=== PATIENT | male | born 1950 | race African-American/Black ===

== ENCOUNTER 2018-11-13 21:31 | Inpatient (IN) | payer MEDICARE, MEDICAID ==
[~2018-11-13] VITALS: Ht 182.9 cm; Wt 67.2 kg
[2018-11-13] MEDS ORDERED: SODIUM CHLORIDE 0.9% 1,000 ML IV ONE (23:38)
[2018-11-14 00:05] LABS: BASOPHILS % 0.3 % (0.0-2.0); EOSINOPHILS % 0.3 % (0.0-5.0); HEMATOCRIT. 40.2 % (42.0-52.0); HEMOGLOBIN. 13.3 g/dL (14.0-18.0); LYMPHOCYTES % 8.3 % (20.0-50.0); MEAN CORPUSCULAR HEMOGLOBIN 31.4 pg (28.0-32.0); MEAN CORPUSCULAR VOLUME 94.6 fL (80.0-94.0); MEAN PLATELET VOLUME 9.1 fl (7.4-10.4); MONOCYTES % 5.6 % (2.0-8.0); NEUTROPHILS % 85.5 % (40.0-76.0); PLATELET 256 x1000/uL (130-400); RED BLOOD CELL COUNT 4.25 mill/uL (4.7-6.1); RED CELL DISTRIBUTION WIDTH 12.8 % (11.6-14.6)
[2018-11-14 00:10] LABS: CHLORIDE 105 mEq/L (98-107)
[2018-11-14 00:44] LABS: CLARITY URINE CLEAR (CLEAR); COLOR URINE YELLOW (YELLOW); KETONES URINE TRACE (NEGATIVE); LEUKOCYTE ESTERASE URINE NEGATIVE (NEGATIVE); NITRITE URINE NEGATIVE (NEGATIVE); OCCULT BLOOD URINE NEGATIVE (NEGATIVE); PH URINE 6.5 (4.5-8.0); PROTEIN URINE NEGATIVE (NEGATIVE); SPECIFIC GRAVITY URINE 1.031 (1.005-1.030)
[2018-11-14] MEDS ORDERED: KETOROLAC 30MG/ML VIAL IV ONE (02:15)
[2018-11-14] MEDS ORDERED: SODIUM CHLORIDE 0.9% 100 ML IV ONE (02:45)
[2018-11-14] MEDS ORDERED: INSULIN REGULAR (HUMULIN R) UD 100 UNITS/ML SYR IV ONE ×2 (02:45)
[2018-11-14] MEDS ORDERED: SODIUM CHLORIDE 0.9% 1,000 ML IV ONE (02:45)
[2018-11-14] MEDS ORDERED: CEFTRIAXONE 2 G PREMIX 50 ML IV ONE (04:45)
[2018-11-14] MEDS ORDERED: AZITHROMYCIN 500 MG in DEXT 5% WATER 250 ML IV SCH (04:45)
[2018-11-14] MEDS ORDERED: SODIUM CHLORIDE 0.9% 800 ML IV ONE (04:45)
[2018-11-14 08:30] VITALS: BP 150/80
[2018-11-14] MEDS ORDERED: DIPHENHYDRAMINE 50MG/ML VIAL IV PRN (10:30)
[2018-11-14] MEDS ORDERED: CLONIDINE 0.1MG TABLET PO PRN (10:30)
[2018-11-14] MEDS ORDERED: KETOROLAC 30MG/ML VIAL IV PRN (10:30)
[2018-11-14] MEDS ORDERED: ACETAMINOPHEN 325MG TABLET PO PRN (10:30)
[2018-11-14] MEDS ORDERED: ONDANSETRON HCL 4MG/2ML INJ IV PRN (10:30)
[2018-11-14] MEDS ORDERED: LORAZEPAM 0.5MG TABLET PO PRN (10:30)
[2018-11-14] MEDS ORDERED: IPRATROPIUM/ALBUTEROL 0.5-3(2.5)MG/3ML NEB INH PRN (10:30)
[2018-11-14] MEDS ORDERED: MAGNESIUM HYDROXIDE 400MG/5ML 30ML UDC PO PRN (10:30)
[2018-11-14] MEDS ORDERED: DEXTROSE 50% WATER 50ML SYRINGE IV PRN (10:30)
[2018-11-14] MEDS ORDERED: MAGNESIUM/ALUMINUM HYDROXIDE/SIMETHICONE 30ML UDC PO PRN (10:30)
[2018-11-14] MEDS ORDERED: METF-414 MT (11:18)
[2018-11-14] MEDS: BLOOD SUGAR DIAGNOSTIC STRIP TEST SCH ×3 (12:10→21:24)
[2018-11-14] MEDS ORDERED: LEVOFLOXACIN 500MG PREMIX 100 ML IV SCH (13:00)
[2018-11-14] MEDS ORDERED: INFLUENZA VIRUS VACCINE(AFLURIA) 0.5ML SYR IM ONE (14:00)
[2018-11-14] MEDS ORDERED: PNEUMOCOCCAL 23-VAL P-SAC VAC 0.5 ML IM ONE (14:00)
[2018-11-14] MEDS: INSULIN LISPRO 100 UNITS/ML SUBCUT SCH ×3 (14:06→21:42)
[2018-11-14] MEDS: ENOXAPARIN 40MG/0.4ML SYR SUBCUT SCH (14:13)
[2018-11-14] MEDS: LEVOFLOXACIN 500MG PREMIX 100 ML IV SCH (14:13)
[2018-11-14] MEDS: GUAIFENESIN 200MG/10ML SUGAR FREE UDC PO PRN (14:14)
[2018-11-14] MEDS: SODIUM CHLORIDE 0.9% INJ 3ML FLUSH IVF SCH ×2 (14:14→21:45)
[2018-11-14] MEDS: IPRATROPIUM/ALBUTEROL 0.5-3(2.5)MG/3ML NEB HHN SCH ×2 (16:08→21:45)
[2018-11-14 20:00] VITALS: BP 143/71
[2018-11-14] MEDS ORDERED: TEMAZEPAM 15MG CAPSULE PO PRN (21:00)
[2018-11-14] MEDS: GUAIFENESIN 600MG ER TABLET PO SCH (21:34)
[2018-11-14] MEDS: NICOTINE 21MG PATCH TD SCH (21:36)
[2018-11-14] MEDS: INSULIN GLARGINE UD 100 UNITS/ML SYR SUBCUT SCH (21:43)
[2018-11-15] VITALS: BP 147/75
[2018-11-15] MEDS: IPRATROPIUM/ALBUTEROL 0.5-3(2.5)MG/3ML NEB HHN SCH ×4 (01:30→11:42)
[2018-11-15 04:00] VITALS: BP 142/70
[2018-11-15] MEDS: BLOOD SUGAR DIAGNOSTIC STRIP TEST SCH ×4 (06:23→21:00)
[2018-11-15] MEDS: SODIUM CHLORIDE 0.9% INJ 3ML FLUSH IVF SCH ×3 (06:23→22:41)
[2018-11-15] MEDS: INSULIN LISPRO 100 UNITS/ML SUBCUT SCH ×4 (06:23→22:48)
[2018-11-15 07:05] LABS: BASOPHILS % 0.6 % (0.0-2.0); EOSINOPHILS % 0.8 % (0.0-5.0); HEMATOCRIT. 35.9 % (42.0-52.0); LYMPHOCYTES % 18.4 % (20.0-50.0); MEAN CORPUSCULAR HEMOGLOBIN 31.2 pg (28.0-32.0); MEAN CORPUSCULAR VOLUME 93.5 fL (80.0-94.0); MEAN PLATELET VOLUME 9.5 fl (7.4-10.4); MONOCYTES % 8.3 % (2.0-8.0); NEUTROPHILS % 71.9 % (40.0-76.0); PLATELET 260 x1000/uL (130-400); RED BLOOD CELL COUNT 3.84 mill/uL (4.7-6.1); RED CELL DISTRIBUTION WIDTH 12.6 % (11.6-14.6)
[2018-11-15 07:42] LABS: CHLORIDE 108 mEq/L (98-107)
[2018-11-15 08:00] VITALS: BP 150/80
[2018-11-15 08:01] LABS: PHOSPHORUS 2.6 mg/dL (2.5-4.9)
[2018-11-15] MEDS: GUAIFENESIN 600MG ER TABLET PO SCH (08:38)
[2018-11-15] MEDS: HYDROCODONE/ACETAMINOPHEN 5/325MG TABLET PO PRN ×2 (08:38→17:36)
[2018-11-15] MEDS: NICOTINE 21MG PATCH TD SCH (08:39)
[2018-11-15 11:52] VITALS: BP 148/86
[2018-11-15] MEDS: ENOXAPARIN 40MG/0.4ML SYR SUBCUT SCH (12:14)
[2018-11-15] MEDS: LEVOFLOXACIN 500MG PREMIX 100 ML IV SCH (12:15)
[2018-11-15 15:28] VITALS: BP 145/76
[2018-11-15] MEDS: BENZONATATE 100MG CAPSULE PO PRN (17:36)
[2018-11-15 20:00] VITALS: BP 166/86
[2018-11-15] MEDS: INSULIN GLARGINE UD 100 UNITS/ML SYR SUBCUT SCH (22:45)
[2018-11-16] VITALS: BP 166/86
[2018-11-16] MEDS: IPRATROPIUM/ALBUTEROL 0.5-3(2.5)MG/3ML NEB HHN SCH ×4 (01:30→21:33)
[2018-11-16] MEDS: GUAIFENESIN 600MG ER TABLET PO SCH ×3 (02:09→20:54)
[2018-11-16 04:00] VITALS: BP 168/82
[2018-11-16] MEDS: SODIUM CHLORIDE 0.9% INJ 3ML FLUSH IVF SCH ×3 (06:49→22:00)
[2018-11-16] MEDS: BLOOD SUGAR DIAGNOSTIC STRIP TEST SCH ×4 (06:51→21:00)
[2018-11-16] MEDS: INSULIN LISPRO 100 UNITS/ML SUBCUT SCH ×4 (06:51→21:00)
[2018-11-16 08:00] VITALS: BP 153/84
[2018-11-16] MEDS: BENZONATATE 100MG CAPSULE PO PRN ×2 (09:13→17:53)
[2018-11-16] MEDS: HYDROCODONE/ACETAMINOPHEN 5/325MG TABLET PO PRN ×3 (09:14→17:53)
[2018-11-16] MEDS: NICOTINE 21MG PATCH TD SCH (09:15)
[2018-11-16 12:00] VITALS: BP 154/84
[2018-11-16] MEDS: ENOXAPARIN 40MG/0.4ML SYR SUBCUT SCH (12:42)
[2018-11-16] MEDS: LEVOFLOXACIN 500MG PREMIX 100 ML IV SCH (12:44)
[2018-11-16] MEDS: GUAIFENESIN 200MG/10ML SUGAR FREE UDC PO PRN (12:48)
[2018-11-16 16:00] VITALS: BP 148/85
[2018-11-16 20:00] VITALS: BP 147/87
[2018-11-16] MEDS: INSULIN GLARGINE UD 100 UNITS/ML SYR SUBCUT SCH (20:59)
[2018-11-17] VITALS: BP 145/76
[2018-11-17] MEDS: IPRATROPIUM/ALBUTEROL 0.5-3(2.5)MG/3ML NEB HHN SCH ×2 (02:44→21:30)
[2018-11-17 04:00] VITALS: BP 149/82
[2018-11-17] MEDS: SODIUM CHLORIDE 0.9% INJ 3ML FLUSH IVF SCH ×3 (06:32→22:02)
[2018-11-17] MEDS: INSULIN LISPRO 100 UNITS/ML SUBCUT SCH ×4 (06:33→21:34)
[2018-11-17] MEDS: BLOOD SUGAR DIAGNOSTIC STRIP TEST SCH ×4 (07:02→21:19)
[2018-11-17 08:00] VITALS: BP 145/87
[2018-11-17] MEDS: GUAIFENESIN 600MG ER TABLET PO SCH ×2 (08:25→21:19)
[2018-11-17] MEDS: NICOTINE 21MG PATCH TD SCH (08:26)
[2018-11-17] MEDS: LEVOFLOXACIN 500MG TABLET PO SCH (11:58)
[2018-11-17] MEDS: ENOXAPARIN 40MG/0.4ML SYR SUBCUT SCH (11:59)
[2018-11-17 12:00] VITALS: BP 133/70
[2018-11-17 16:00] VITALS: BP 140/76
[2018-11-17 20:00] VITALS: BP 163/93
[2018-11-17] MEDS: INSULIN GLARGINE UD 100 UNITS/ML SYR SUBCUT SCH (21:35)
[2018-11-18] VITALS: BP 140/68
[2018-11-18] MEDS: IPRATROPIUM/ALBUTEROL 0.5-3(2.5)MG/3ML NEB HHN SCH ×2 (01:58→07:18)
[2018-11-18 04:00] VITALS: BP 135/72
[2018-11-18] MEDS: BLOOD SUGAR DIAGNOSTIC STRIP TEST SCH ×2 (06:43→12:16)
[2018-11-18] MEDS: SODIUM CHLORIDE 0.9% INJ 3ML FLUSH IVF SCH ×2 (06:44→14:25)
[2018-11-18] MEDS: INSULIN LISPRO 100 UNITS/ML SUBCUT SCH ×2 (07:54→12:27)
[2018-11-18 08:00] VITALS: BP 156/81
[2018-11-18] MEDS: GUAIFENESIN 600MG ER TABLET PO SCH (08:01)
[2018-11-18] MEDS: NICOTINE 21MG PATCH TD SCH (08:01)
[2018-11-18] MEDS ORDERED: BENZONATATE 100MG CAPSULE PO SCH (10:30)
[2018-11-18] MEDS: LEVOFLOXACIN 500MG TABLET PO SCH (10:52)
[2018-11-18] MEDS: ENOXAPARIN 40MG/0.4ML SYR SUBCUT SCH (10:53)
[2018-11-18 12:00] VITALS: BP 148/89
[2018-11-18 13:30] VITALS: BP 148/89
== END 2018-11-18 16:30 | disposition home or self-care (01) | DRG 871 ==
LOC: ER 21:43 → 8WST 11-14 04:49 → EDBEDREQTM 11-14 04:50 → EDBEDREQ 11-14 04:50 → ENRESERV 11-14 07:08 → 8WST 11-14 08:50
PROVIDERS: ADMIT Internal Medicine; ATTEND Internal Medicine
DX: A41.9 Sepsis, unspecified organism (principal); J18.1 Lobar pneumonia, unspecified organism; J96.00 Acute respiratory failure, unspecified whether with hypoxia or hypercapnia; S32.10XA Unspecified fracture of sacrum, initial encounter for closed fracture; S32.059A Unspecified fracture of fifth lumbar vertebra, initial encounter for closed fracture; J44.0 Chronic obstructive pulmonary disease with (acute) lower respiratory infection; I10 Essential (primary) hypertension; E11.51 Type 2 diabetes mellitus with diabetic peripheral angiopathy without gangrene; F17.210 Nicotine dependence, cigarettes, uncomplicated; I25.10 Atherosclerotic heart disease of native coronary artery without angina pectoris; M48.061 Spinal stenosis, lumbar region without neurogenic claudication; W01.0XXA Fall on same level from slipping, tripping and stumbling without subsequent striking against object, initial encounter; Y92.009 Unspecified place in unspecified non-institutional (private) residence as the place of occurrence of the external cause; Y93.89 Activity, other specified; Y99.8 Other external cause status; Z59.0 Homelessness; I25.2 Old myocardial infarction; Z82.49 Family history of ischemic heart disease and other diseases of the circulatory system; Z83.3 Family history of diabetes mellitus; Z95.820 Peripheral vascular angioplasty status with implants and grafts; Z95.818 Presence of other cardiac implants and grafts; Z71.6 Tobacco abuse counseling
CPT/HCPCS: 36415; 71045; 72192; 80048; 82962; 83036; 83605; 83735; 83880; 84100; 84484; 87804; 90686; 90732; 93005; 94640; 96361; 96374; 97162; 99285; J0456; J0696; J1650; J1815; J1885; J1956; J7030; J7050; J7060; J7620

== ENCOUNTER 2020-12-30 07:05 | Emergency (ER) | payer OTHER, MEDICAID ==
[~2020-12-30] VITALS: Ht 180.3 cm; Wt 70.0 kg
[~2020-12-30 07:05] MED LIST: METF-414 MT
[2020-12-30] MEDS ORDERED: PIPERACILLIN/TAZ 3.375G PREMIX 50 ML IV ONE (07:30)
[2020-12-30] MEDS ORDERED: VANCOMYCIN 1 G PREMIX 200 ML IV ONE (07:30)
[2020-12-30 08:44] LABS: BASOPHILS % 0.6 % (0.0-2.0); EOSINOPHILS % 1.8 % (0.0-5.0); HEMATOCRIT. 42.1 % (42.0-52.0); LYMPHOCYTES % 25.4 % (20.0-50.0); MEAN CORPUSCULAR HEMOGLOBIN 30.5 pg (28.0-32.0); MEAN CORPUSCULAR VOLUME 91.9 fL (80.0-94.0); MEAN PLATELET VOLUME 8.7 fl (7.4-10.4); MONOCYTES % 7.5 % (2.0-8.0); NEUTROPHILS % 64.7 % (40.0-76.0); PLATELET 378 x1000/uL (130-400); RED BLOOD CELL COUNT 4.58 mill/uL (4.7-6.1); RED CELL DISTRIBUTION WIDTH 14.4 % (11.6-14.6)
[2020-12-30 08:57] LABS: INR 1.2; PROTHROMBIN TIME 12.3 sec (9.6-11.0)
[2020-12-30 09:07] LABS: CHLORIDE 107 mEq/L (98-107)
[2020-12-30] MEDS ORDERED: MORPHINE SULFATE 4 MG/ML CPJ (NOT FOR IM USE) IV ONE (10:15)
[2020-12-30 11:15] VITALS: BP 161/87
== END 2020-12-30 11:59 | disposition short-term general hospital (02) ==
LOC: ER 07:27 → CANBEDREQ 11:49 → ER 11:59
DX: E11.69 Type 2 diabetes mellitus with other specified complication (principal); M86.8X7 Other osteomyelitis, ankle and foot; E11.52 Type 2 diabetes mellitus with diabetic peripheral angiopathy with gangrene; I96 Gangrene, not elsewhere classified; M84.478A Pathological fracture, left toe(s), initial encounter for fracture; I10 Essential (primary) hypertension; E78.00 Pure hypercholesterolemia, unspecified; Z91.14 Patient's other noncompliance with medication regimen; F14.10 Cocaine abuse, uncomplicated
CPT/HCPCS: 36415; 71045; 73630; 80053; 83605; 85025; 85610; 85651; 86141; 87040; 93005; 96365; 96366; 96368; 96375; 99285; J2270; J2543; J3370

== ENCOUNTER 2022-10-07 18:49 | Emergency (ER) | payer OTHER, MEDICAID ==
[~2022-10-07] VITALS: Ht 182.9 cm; Wt 81.0 kg
[2022-10-07] MEDS ORDERED: VANCOMYCIN 1G PREMIX 200 ML IV ONE (19:15)
[2022-10-07] MEDS ORDERED: PIPERACILLIN/TAZ 3.375G PREMIX 50 ML IV ONE (19:15)
[2022-10-07 20:11] LABS: BASOPHILS % 0.6 % (0.0-2.0); EOSINOPHILS % 3.8 % (0.0-5.0); HEMATOCRIT. 40.4 % (42.0-52.0); HEMOGLOBIN. 13.4 g/dL (14.0-18.0); LYMPHOCYTES % 28.1 % (20.0-50.0); MEAN CORPUSCULAR HEMOGLOBIN 31.2 pg (28.0-32.0); MONOCYTES % 6.7 % (2.0-8.0); NEUTROPHILS % 60.8 % (40.0-76.0); PLATELET 330 x1000/uL (130-400); RED CELL DISTRIBUTION WIDTH 14.5 % (11.6-14.6)
[2022-10-07 20:21] LABS: CHLORIDE 107 mEq/L (98-107)
[2022-10-08] MEDS ORDERED: VANCOMYCIN 1G PREMIX 200 ML IV NR (01:15)
[2022-10-08] MEDS ORDERED: PIPERACILLIN/TAZ 3.375G PREMIX 50 ML IV NR (01:15)
[2022-10-08] MEDS ORDERED: ACETAMINOPHEN 500MG TABLET PO ONE (01:45)
[2022-10-08 02:30] VITALS: BP 148/79
[2022-10-08 02:33] LABS: INR 1.1; PROTHROMBIN TIME 11.9 sec (9.6-11.0)
== END 2022-10-08 02:55 | disposition short-term general hospital (02) ==
LOC: ER 19:38 → CANBEDREQ 10-08 06:54
DX: E11.621 Type 2 diabetes mellitus with foot ulcer (principal); L97.519 Non-pressure chronic ulcer of other part of right foot with unspecified severity; Z20.822 Contact with and (suspected) exposure to COVID-19
CPT/HCPCS: 36415; 73630; 80053; 82962; 85025; 85610; 85651; 87426; 96365; 96366; 96368; 99285; C9803; J2543; J3370

== ENCOUNTER 2023-05-18 02:16 | Inpatient (IN) | payer MEDICARE, MEDICAID ==
[~2023-05-18] VITALS: Ht 183.1 cm; Wt 67.6 kg
[2023-05-18 02:18] VITALS: O2SAT 99
[2023-05-18 03:16] LABS: BASOPHILS % 0.8 % (0.0-2.0); EOSINOPHILS % 2.4 % (0.0-5.0); HEMATOCRIT. 40.5 % (42.0-52.0); HEMOGLOBIN. 13.6 g/dL (14.0-18.0); LYMPHOCYTES % 29.2 % (20.0-50.0); MEAN CORPUSCULAR HEMOGLOBIN 32.4 pg (28.0-32.0); MEAN CORPUSCULAR HGB CONC 33.6 g/dL (31.0-37.0); MEAN CORPUSCULAR VOLUME 96.5 fL (80.0-94.0); MONOCYTES % 7.4 % (2.0-8.0); NEUTROPHILS % 60.2 % (40.0-76.0); PLATELET 311 x1000/uL (130-400); RED BLOOD CELL COUNT 4.19 mill/uL (4.7-6.1); RED CELL DISTRIBUTION WIDTH 13.5 % (11.6-14.6); WHITE BLOOD COUNT 6.6 x1000/uL (4.5-11.0)
[2023-05-18 03:24] LABS: CHLORIDE 107 mEq/L (98-107); INDEX HEMOLYSI 1 (1-3); INDEX ICTERIC 1 (1-4); INDEX LIPEMIC 1 (1-3); POTASSIUM 3.4 mEq/L (3.5-5.1); SODIUM 137 mEq/L (136-145)
[2023-05-18 03:32] LABS: ALANINE AMINOTRANSFERASE 20 IU/L (13-61); ALBUMIN 3.1 g/dL (3.4-5.0); ASPARTATE AMINOTRANSFERASE 12 IU/L (15-37); BILIRUBIN TOTAL 0.3 mg/dL (0.1-1.0); CALCIUM 8.9 mg/dL (8.5-10.1); CARBON DIOXIDE 26 mEq/L (21-32); CREATINE KINASE 124 IU/L (39-308); CREATININE 0.9 mg/dL (0.6-1.3); ETHANOL BLOOD < 10 mg/dL (<10); PROTEIN TOTAL 7.9 g/dL (6.0-8.3); UREA NITROGEN BLOOD 9 mg/dL (7-21)
[2023-05-18 03:43] LABS: INR 1.1; PROTHROMBIN TIME 11.4 sec (9.6-11.0)
[2023-05-18 03:47] LABS: GLUCOSE 43 mg/dL (70-105)
[2023-05-18] MEDS ORDERED: VANCOMYCIN 1G PREMIX 200 ML IV NR (05:15)
[2023-05-18] MEDS ORDERED: DEXTROSE 50% WATER 50ML SYRINGE IV NR (05:15)
[2023-05-18] MEDS ORDERED: DOCUSATE SODIUM 100MG CAPSULE PO PRN (05:30)
[2023-05-18] MEDS ORDERED: ACETAMINOPHEN 325MG TABLET PO PRN ×2 (05:30)
[2023-05-18] MEDS ORDERED: ONDANSETRON HCL 4MG/2ML INJ IV PRN (05:30)
[2023-05-18] MEDS ORDERED: IPRATROPIUM/ALBUTEROL 0.5-3(2.5)MG/3ML NEB HHN PRN (05:30)
[2023-05-18] MEDS ORDERED: DEXTROSE 50% WATER 50ML SYRINGE IV PRN ×2 (05:30→16:00)
[2023-05-18] MEDS ORDERED: GUAIFENESIN 200MG/10ML SUGAR FREE UDC PO PRN (05:30)
[2023-05-18] MEDS ORDERED: PIPERACILLIN/TAZ 3.375G PREMIX 50 ML IV NR (06:00)
[2023-05-18] MEDS: AMLODIPINE 5MG TABLET PO SCH ×2 (06:48→09:30)
[2023-05-18 07:04] LABS: INDEX HEMOLYSI 1 (1-3)
[2023-05-18 07:13] LABS: CREATINE KINASE 102 IU/L (39-308); CREATINE KINASE MB FRACTION 2.6 ng/mL (0.5-3.6); TROPONIN I HIGH SENSITIVITY 15 ng/L (<78)
[2023-05-18 07:16] LABS: PHOSPHORUS 2.9 mg/dL (2.5-4.9); T4 FREE 0.98 ng/dL (0.76-1.46); THYROID STIMULATING HORMONE 1.1 uIU/mL (0.36-3.74)
[2023-05-18 07:33] LABS: FOLIC ACID (FOLATE) SERUM 16.5 ng/mL (>5.38)
[2023-05-18] MEDS: INSULIN LISPRO 100 UNITS/ML SUBCUT SCH ×4 (08:20→21:41)
[2023-05-18] MEDS: ENOXAPARIN 40MG/0.4ML SYR SUBCUT SCH (09:31)
[2023-05-18] MEDS: BLOOD SUGAR DIAGNOSTIC STRIP TEST SCH ×4 (09:40→20:46)
[2023-05-18] MEDS ORDERED: PIPERACILLIN/TAZOBACTAM 3.375 G in DEXTROSE 5% WATER 50 ML IV SCH (14:00)
[2023-05-18 14:30] VITALS: BP 172/83; PULSE 75; RESP 18; TEMP 97.5
[2023-05-18] MEDS: CLONIDINE 0.1MG TABLET PO PRN (14:30)
[2023-05-18] MEDS: GABAPENTIN 100MG CAPSULE PO SCH ×2 (14:31→21:40)
[2023-05-18] MEDS ORDERED: PIPERACILLIN/TAZOBACTAM 3.375G in DEXT 5% WATER 50ML IV SCH (15:00)
[2023-05-18 16:00] VITALS: BP 172/83; PULSE 75; RESP 18; TEMP 97.6
[2023-05-18] MEDS: PIPERACILLIN/TAZOBACTAM 3.375G in DEXT 5% WATER 50ML IV SCH ×2 (16:08→21:40)
[2023-05-18] MEDS: NICOTINE 21MG PATCH TD SCH (16:09)
[2023-05-18 16:15] VITALS: BP 166/87; PULSE 88; RESP 20; TEMP 97.5
[2023-05-18] MEDS: VANCOMYCIN 750MG PREMIX 150 ML IV SCH (18:00)
[2023-05-18 20:00] VITALS: BP 132/66; PULSE 85; RESP 18; TEMP 98.3
[2023-05-18] MEDS ORDERED: KETOROLAC 30MG/ML VIAL IV NR (20:45)
[2023-05-18] MEDS: FAMOTIDINE 20MG TABLET PO SCH (21:40)
[2023-05-19] VITALS (7 sets, daily range): BP systolic 107–168; BP diastolic 53–87; PULSE 66–88; RESP 18–20; TEMP 97.5–98.9
[2023-05-19 00:07] LABS: CREATINE KINASE MB FRACTION 1.5 ng/mL (0.5-3.6)
[2023-05-19] MEDS: VANCOMYCIN 750MG PREMIX 150 ML IV SCH ×2 (05:17→18:07)
[2023-05-19] MEDS: GABAPENTIN 100MG CAPSULE PO SCH ×3 (05:17→22:07)
[2023-05-19] MEDS: PIPERACILLIN/TAZOBACTAM 3.375G in DEXT 5% WATER 50ML IV SCH ×3 (06:01→22:07)
[2023-05-19] MEDS: BLOOD SUGAR DIAGNOSTIC STRIP TEST SCH ×4 (07:18→21:00)
[2023-05-19] MEDS: INSULIN LISPRO 100 UNITS/ML SUBCUT SCH ×4 (08:10→21:00)
[2023-05-19 08:21] LABS: HEMOGLOBIN 12.4 g/dL (14.0-18.0); MEAN CORPUSCULAR HEMOGLOBIN 32.3 pg (28.0-32.0); MEAN CORPUSCULAR HGB CONC 33.5 g/dL (31.0-37.0); MEAN CORPUSCULAR VOLUME 96.4 fL (80.0-94.0); PLATELET 290 x1000/uL (130-400); RED BLOOD CELL COUNT 3.84 mill/uL (4.7-6.1); RED CELL DISTRIBUTION WIDTH 13.5 % (11.6-14.6)
[2023-05-19] MEDS: AMLODIPINE 5MG TABLET PO SCH (09:00)
[2023-05-19] MEDS: NICOTINE 21MG PATCH TD SCH (09:23)
[2023-05-19] MEDS: ENOXAPARIN 40MG/0.4ML SYR SUBCUT SCH (09:23)
[2023-05-19 09:33] LABS: CHLORIDE 109 mEq/L (98-107); INDEX HEMOLYSI 1 (1-3); INDEX ICTERIC 1 (1-4); INDEX LIPEMIC 1 (1-3); POTASSIUM 4.4 mEq/L (3.5-5.1); SODIUM 135 mEq/L (136-145)
[2023-05-19 09:41] LABS: ALANINE AMINOTRANSFERASE 15 IU/L (13-61); ALBUMIN 2.4 g/dL (3.4-5.0); ASPARTATE AMINOTRANSFERASE 15 IU/L (15-37); BILIRUBIN TOTAL 0.7 mg/dL (0.1-1.0); CARBON DIOXIDE 25 mEq/L (21-32); GLUCOSE 95 mg/dL (70-105); PROTEIN TOTAL 6.4 g/dL (6.0-8.3); UREA NITROGEN BLOOD 16 mg/dL (7-21)
[2023-05-19] MEDS ORDERED: TETANUS AND DIPHTHERIA TOX/PF 0.5ML SYR (ADULT) IM ONE (15:00)
[2023-05-19] MEDS: CLONIDINE 0.1MG TABLET PO PRN (22:07)
[2023-05-19] MEDS: FAMOTIDINE 20MG TABLET PO SCH (22:07)
[2023-05-20] VITALS: BP 117/62; PULSE 85; RESP 20; TEMP 97.9
[2023-05-20 04:00] VITALS: BP 138/72; PULSE 62; RESP 18; TEMP 98.5
[2023-05-20] MEDS: VANCOMYCIN 750MG PREMIX 150 ML IV SCH ×2 (05:01→17:35)
[2023-05-20] MEDS: GABAPENTIN 100MG CAPSULE PO SCH ×4 (05:01→21:11)
[2023-05-20] MEDS: PIPERACILLIN/TAZOBACTAM 3.375G in DEXT 5% WATER 50ML IV SCH ×3 (06:18→21:12)
[2023-05-20 07:42] LABS: HEMATOCRIT 38.2 % (42.0-52.0); HEMOGLOBIN 12.5 g/dL (14.0-18.0); MEAN CORPUSCULAR HEMOGLOBIN 31.6 pg (28.0-32.0); MEAN CORPUSCULAR HGB CONC 32.7 g/dL (31.0-37.0); MEAN CORPUSCULAR VOLUME 96.7 fL (80.0-94.0); PLATELET 323 x1000/uL (130-400); RED BLOOD CELL COUNT 3.95 mill/uL (4.7-6.1); RED CELL DISTRIBUTION WIDTH 13.5 % (11.6-14.6); WHITE BLOOD COUNT 4.7 x1000/uL (4.5-11.0)
[2023-05-20] MEDS: INSULIN LISPRO 100 UNITS/ML SUBCUT SCH ×4 (07:42→21:11)
[2023-05-20] MEDS: BLOOD SUGAR DIAGNOSTIC STRIP TEST SCH ×4 (07:42→21:00)
[2023-05-20 08:00] VITALS: BP 128/67; PULSE 62; RESP 18; TEMP 97.2
[2023-05-20 08:15] LABS: CHLORIDE 110 mEq/L (98-107); INDEX HEMOLYSI 1 (1-3); INDEX ICTERIC 1 (1-4); INDEX LIPEMIC 1 (1-3); POTASSIUM 4.6 mEq/L (3.5-5.1); SODIUM 136 mEq/L (136-145)
[2023-05-20 08:22] LABS: CALCIUM 8.2 mg/dL (8.5-10.1); CARBON DIOXIDE 25 mEq/L (21-32); CREATININE 0.9 mg/dL (0.6-1.3); GLUCOSE 107 mg/dL (70-105); PHOSPHORUS 2.9 mg/dL (2.5-4.9); UREA NITROGEN BLOOD 12 mg/dL (7-21)
[2023-05-20] MEDS: ENOXAPARIN 40MG/0.4ML SYR SUBCUT SCH (09:00)
[2023-05-20] MEDS: AMLODIPINE 5MG TABLET PO SCH (09:01)
[2023-05-20] MEDS: NICOTINE 21MG PATCH TD SCH (09:03)
[2023-05-20 12:00] VITALS: BP 120/71; PULSE 75; RESP 18; TEMP 97.8
[2023-05-20] MEDS ORDERED: KETOROLAC 30MG/ML VIAL IV NR (14:45)
[2023-05-20 16:03] LABS: *AMPHETAMINES SCREEN URINE NEGATIVE (NEGATIVE); *BARBITURATES SCREEN URINE NEGATIVE (NEGATIVE); *BENZODIAZEPINES SCREEN URINE NEGATIVE (NEGATIVE); *COCAINE SCREEN URINE PRESUMTIVE POSITIVE (NEGATIVE); CANNABINOID URINE SCREEN NEGATIVE (NEGATIVE); ECSTASY MDMA SCREEN URINE NEGATIVE (NEGATIVE); OPIATES URINE SCREEN NEGATIVE (NEGATIVE); PHENCYCLIDINE URINE SCREEN NEGATIVE (NEGATIVE)
[2023-05-20 16:04] VITALS: BP 153/67; PULSE 69; RESP 18; TEMP 98
[2023-05-20 18:50] LABS: CLARITY URINE CLEAR (CLEAR); COLOR URINE YELLOW (YELLOW); GLUCOSE URINE NEGATIVE (NEGATIVE); KETONES URINE NEGATIVE (NEGATIVE); LEUKOCYTE ESTERASE URINE NEGATIVE (NEGATIVE); NITRITE URINE NEGATIVE (NEGATIVE); OCCULT BLOOD URINE NEGATIVE (NEGATIVE); PH URINE 7.5 (4.5-8.0); PROTEIN URINE NEGATIVE (NEGATIVE); SPECIFIC GRAVITY URINE 1.011 (1.005-1.030); UROBILINOGEN URINE 0.2 E.U./dL (0.2-1.0)
[2023-05-20 20:00] VITALS: BP 125/59; PULSE 79; RESP 20; TEMP 99.9
[2023-05-20] MEDS: FAMOTIDINE 20MG TABLET PO SCH (21:11)
[2023-05-20] MEDS: KETOROLAC 30MG/ML VIAL IV PRN (21:12)
[2023-05-21] VITALS: BP 132/58; PULSE 80; RESP 19; TEMP 98.7
[2023-05-21] MEDS: KETOROLAC 30MG/ML VIAL IV PRN ×3 (03:25→21:22)
[2023-05-21 04:00] VITALS: BP 128/62; PULSE 65; RESP 18; TEMP 99
[2023-05-21] MEDS: VANCOMYCIN 750MG PREMIX 150 ML IV SCH ×2 (05:03→17:56)
[2023-05-21] MEDS: GABAPENTIN 100MG CAPSULE PO SCH ×3 (05:04→21:21)
[2023-05-21] MEDS: PIPERACILLIN/TAZOBACTAM 3.375G in DEXT 5% WATER 50ML IV SCH ×3 (06:28→21:20)
[2023-05-21 08:21] VITALS: BP 149/83; PULSE 68; RESP 18; TEMP 98
[2023-05-21] MEDS: AMLODIPINE 5MG TABLET PO SCH (08:38)
[2023-05-21] MEDS: FERROUS SULFATE 325MG TABLET PO SCH (08:38)
[2023-05-21] MEDS: NICOTINE 21MG PATCH TD SCH (08:38)
[2023-05-21] MEDS: ENOXAPARIN 40MG/0.4ML SYR SUBCUT SCH (08:39)
[2023-05-21] MEDS: INSULIN LISPRO 100 UNITS/ML SUBCUT SCH ×4 (08:39→21:00)
[2023-05-21] MEDS: BLOOD SUGAR DIAGNOSTIC STRIP TEST SCH ×4 (08:39→21:21)
[2023-05-21 11:58] VITALS: BP 135/55; PULSE 70; RESP 18; TEMP 98
[2023-05-21] MEDS ORDERED: IOHEXOL-350 100 ML BOTTLE ONE (15:07)
[2023-05-21 16:31] VITALS: BP 159/78; PULSE 76; RESP 18; TEMP 97.6
[2023-05-21 20:00] VITALS: BP 158/65; PULSE 63; RESP 20; TEMP 97.9
[2023-05-21] MEDS: FAMOTIDINE 20MG TABLET PO SCH (21:21)
[2023-05-22] VITALS: BP 122/75; PULSE 74; RESP 20; TEMP 97.5
[2023-05-22 03:10] LABS: HEMATOCRIT 37.2 % (42.0-52.0); HEMOGLOBIN 12.4 g/dL (14.0-18.0); MEAN CORPUSCULAR HEMOGLOBIN 31.8 pg (28.0-32.0); MEAN CORPUSCULAR HGB CONC 33.2 g/dL (31.0-37.0); MEAN CORPUSCULAR VOLUME 95.7 fL (80.0-94.0); PLATELET 345 x1000/uL (130-400); RED BLOOD CELL COUNT 3.89 mill/uL (4.7-6.1); RED CELL DISTRIBUTION WIDTH 13.6 % (11.6-14.6); WHITE BLOOD COUNT 3.9 x1000/uL (4.5-11.0)
[2023-05-22 03:16] LABS: CHLORIDE 108 mEq/L (98-107); INDEX HEMOLYSI 1 (1-3); INDEX ICTERIC 1 (1-4); INDEX LIPEMIC 1 (1-3); POTASSIUM 4.6 mEq/L (3.5-5.1); SODIUM 137 mEq/L (136-145)
[2023-05-22 03:23] LABS: CALCIUM 8.3 mg/dL (8.5-10.1); CARBON DIOXIDE 28 mEq/L (21-32); CREATININE 1.1 mg/dL (0.6-1.3); GLUCOSE 132 mg/dL (70-105); UREA NITROGEN BLOOD 16 mg/dL (7-21)
[2023-05-22 04:00] VITALS: BP 131/71; PULSE 73; RESP 20; TEMP 97.8
[2023-05-22] MEDS: VANCOMYCIN 750MG PREMIX 150 ML IV SCH (05:34)
[2023-05-22] MEDS: PIPERACILLIN/TAZOBACTAM 3.375G in DEXT 5% WATER 50ML IV SCH ×3 (06:40→22:28)
[2023-05-22] MEDS: GABAPENTIN 100MG CAPSULE PO SCH ×3 (06:41→21:14)
[2023-05-22] MEDS: KETOROLAC 30MG/ML VIAL IV PRN ×2 (06:50→20:22)
[2023-05-22 08:23] VITALS: BP 136/80; PULSE 62; RESP 20; TEMP 97.7
[2023-05-22] MEDS: INSULIN LISPRO 100 UNITS/ML SUBCUT SCH ×4 (08:26→21:00)
[2023-05-22] MEDS: NICOTINE 21MG PATCH TD SCH (08:30)
[2023-05-22] MEDS: ENOXAPARIN 40MG/0.4ML SYR SUBCUT SCH (08:31)
[2023-05-22] MEDS: BLOOD SUGAR DIAGNOSTIC STRIP TEST SCH ×4 (08:34→21:00)
[2023-05-22] MEDS: AMLODIPINE 5MG TABLET PO SCH (08:34)
[2023-05-22] MEDS ORDERED: HEPARIN 1000 UNITS/ML 10ML ONE (10:30)
[2023-05-22] MEDS ORDERED: IODIXANOL 320MG/ML 100 ML BOTTLE IV ONE (10:30)
[2023-05-22] MEDS ORDERED: LIDOCAINE HCL 1% 20ML VIAL (Pyxis) INJ ONE (10:31)
[2023-05-22] MEDS ORDERED: KETOROLAC 30MG/ML VIAL ONE (10:57)
[2023-05-22] MEDS ORDERED: DIPHENHYDRAMINE 50MG/ML VIAL ONE (10:57)
[2023-05-22] MEDS: CLOPIDOGREL 75MG TABLET PO SCH (11:00)
[2023-05-22] MEDS ORDERED: HYDRALAZINE 20MG/ML VIAL ONE (11:18)
[2023-05-22] MEDS ORDERED: FENTANYL CITRATE/PF 50MCG/ML 2ML VIAL ONE (11:30)
[2023-05-22 12:46] VITALS: BP 135/75; PULSE 78; RESP 20; TEMP 97.4
[2023-05-22 15:49] VITALS: BP 158/96; PULSE 101; RESP 20; TEMP 97.7
[2023-05-22 20:00] VITALS: BP 143/76; PULSE 87; RESP 20; TEMP 96.8
[2023-05-22] MEDS: FAMOTIDINE 20MG TABLET PO SCH (20:22)
[2023-05-23] VITALS: BP 135/87; PULSE 92; RESP 20; TEMP 97.5
[2023-05-23 04:00] VITALS: BP 153/68; PULSE 74; RESP 20; TEMP 97.7
[2023-05-23 06:41] LABS: HEMOGLOBIN 12.1 g/dL (14.0-18.0); MEAN CORPUSCULAR HEMOGLOBIN 31.6 pg (28.0-32.0); MEAN CORPUSCULAR HGB CONC 32.8 g/dL (31.0-37.0); MEAN CORPUSCULAR VOLUME 96.4 fL (80.0-94.0); PLATELET 331 x1000/uL (130-400); RED BLOOD CELL COUNT 3.84 mill/uL (4.7-6.1); RED CELL DISTRIBUTION WIDTH 13.6 % (11.6-14.6); WHITE BLOOD COUNT 4.4 x1000/uL (4.5-11.0)
[2023-05-23] MEDS: PIPERACILLIN/TAZOBACTAM 3.375G in DEXT 5% WATER 50ML IV SCH ×2 (06:48→15:04)
[2023-05-23] MEDS: GABAPENTIN 100MG CAPSULE PO SCH (06:48)
[2023-05-23] MEDS: BLOOD SUGAR DIAGNOSTIC STRIP TEST SCH ×3 (07:13→17:20)
[2023-05-23] MEDS: INSULIN LISPRO 100 UNITS/ML SUBCUT SCH ×3 (07:50→17:50)
[2023-05-23 08:00] VITALS: BP 103/57; PULSE 79; RESP 19; TEMP 97.6
[2023-05-23 08:22] LABS: CHLORIDE 107 mEq/L (98-107); INDEX HEMOLYSI 1 (1-3); INDEX ICTERIC 1 (1-4); INDEX LIPEMIC 1 (1-3); POTASSIUM 4.8 mEq/L (3.5-5.1); SODIUM 136 mEq/L (136-145)
[2023-05-23 08:29] LABS: CALCIUM 8.4 mg/dL (8.5-10.1); CARBON DIOXIDE 23 mEq/L (21-32); CREATININE 1.2 mg/dL (0.6-1.3); GLUCOSE 196 mg/dL (70-105); PHOSPHORUS 3.5 mg/dL (2.5-4.9); UREA NITROGEN BLOOD 18 mg/dL (7-21)
[2023-05-23] MEDS: NICOTINE 21MG PATCH TD SCH (09:03)
[2023-05-23] MEDS: CLOPIDOGREL 75MG TABLET PO SCH (09:03)
[2023-05-23] MEDS: ENOXAPARIN 40MG/0.4ML SYR SUBCUT SCH (09:03)
[2023-05-23] MEDS: FERROUS SULFATE 325MG TABLET PO SCH (09:03)
[2023-05-23] MEDS: AMLODIPINE 5MG TABLET PO SCH (09:04)
[2023-05-23] MEDS: CLONIDINE 0.1MG TABLET PO PRN (11:40)
[2023-05-23 12:00] VITALS: BP 106/60; PULSE 78; RESP 18; TEMP 98.1
[2023-05-23] MEDS ORDERED: GABAPENTIN 100MG CAPSULE PO SCH (14:00)
[2023-05-23 16:00] VITALS: BP 100/68; PULSE 80; RESP 19; TEMP 97.3
[2023-05-23] MEDS: VANCOMYCIN 1G PREMIX 200 ML IV SCH ×2 (18:00)
[2023-05-24] MEDS ORDERED: AMLODIPINE 10MG TABLET PO SCH (09:00)
== END 2023-05-23 18:50 | disposition left against medical advice (07) | DRG 253 ==
LOC: ER 02:16 → 7WST 05:11 → EDBEDREQ 05:22 → EDBEDREQSVC 07:54 → 6WST 05-22 17:04 → 6EST 05-22 23:30
PROVIDERS: ADMIT Internal Medicine; ATTEND Internal Medicine
PROC: 0QBQ0ZZ Excision of Right Toe Phalanx, Open Approach (ICD-10-PCS; 2023-05-21)
PROC: 047K3Z1 Dilation of Right Femoral Artery using Drug-Coated Balloon, Percutaneous Approach (ICD-10-PCS; principal; 2023-05-22)
PROC: 047M3ZZ Dilation of Right Popliteal Artery, Percutaneous Approach (ICD-10-PCS; 2023-05-22)
PROC: B41FYZZ Fluoroscopy of Right Lower Extremity Arteries using Other Contrast (ICD-10-PCS; 2023-05-22)
PROC: 047R3ZZ Dilation of Right Posterior Tibial Artery, Percutaneous Approach (ICD-10-PCS; 2023-05-22)
DX: E11.51 Type 2 diabetes mellitus with diabetic peripheral angiopathy without gangrene (principal); E44.0 Moderate protein-calorie malnutrition; M86.8X7 Other osteomyelitis, ankle and foot; E11.69 Type 2 diabetes mellitus with other specified complication; E11.621 Type 2 diabetes mellitus with foot ulcer; J44.9 Chronic obstructive pulmonary disease, unspecified; Z66 Do not resuscitate; Z53.29 Procedure and treatment not carried out because of patient's decision for other reasons; Z20.822 Contact with and (suspected) exposure to COVID-19; D53.9 Nutritional anemia, unspecified; E11.649 Type 2 diabetes mellitus with hypoglycemia without coma; E87.6 Hypokalemia; F17.210 Nicotine dependence, cigarettes, uncomplicated; I10 Essential (primary) hypertension; I25.10 Atherosclerotic heart disease of native coronary artery without angina pectoris; L97.519 Non-pressure chronic ulcer of other part of right foot with unspecified severity; K59.00 Constipation, unspecified; F19.90 Other psychoactive substance use, unspecified, uncomplicated; E78.5 Hyperlipidemia, unspecified; E11.40 Type 2 diabetes mellitus with diabetic neuropathy, unspecified; I70.201 Unspecified atherosclerosis of native arteries of extremities, right leg; S90.421A Blister (nonthermal), right great toe, initial encounter; E11.65 Type 2 diabetes mellitus with hyperglycemia; Z79.899 Other long term (current) drug therapy; Z89.512 Acquired absence of left leg below knee; Z68.20 Body mass index [BMI] 20.0-20.9, adult; Z89.511 Acquired absence of right leg below knee; Z91.199 Patient's noncompliance with other medical treatment and regimen due to unspecified reason; Z79.4 Long term (current) use of insulin; Z95.5 Presence of coronary angioplasty implant and graft; Z59.01 Sheltered homelessness; Z98.62 Peripheral vascular angioplasty status; Z79.02 Long term (current) use of antithrombotics/antiplatelets
CPT/HCPCS: 36415; 71045; 73630; 73721; 75635; 80048; 80053; 80061; 80202; 80305; 80320; 81003; 82550; 82553; 82607; 82746; 82962; 83036; 83540; 83550; 83605; 83735; 83880; 84100; 84145; 84439; 84443; 84484; 85025; 85027; 85347; 85651; 87070; 87077; 87186; 87426; 90714; 93005; 93306; 93923; 93970; 97162; 97166; 99285; J0360; J1200; J1644; J1650; J1815; J1885; J2543; J3010; J3370; J3490; J7060; Q9967; G0480